=== PATIENT | male | born 1975 | race African-American/Black ===

== ENCOUNTER 2020-04-30 06:58 | Emergency (ER) | payer SELFPAY ==
[~2020-04-30] VITALS: Ht 182.9 cm; Wt 120.0 kg
[2020-04-30] MEDS ORDERED: IV NORMAL SALINE 1000ML BAG 1,000 ML IV ONE (07:15)
[2020-04-30 07:40] VITALS: BP 184/100
--- NOTE | 2020-04-30 07:53 | RAD ---
Exam performed: CT scan of the head without contrast. Date of Service: 04/30/2020. Comparison: None available. Clinical History: Altered Mental status. Technique: Helical acquisitions are obtained from the foramen magnum to the vertex without intravenou s administration of contrast. Findings: The ventricles are midline without evidence of dilatation. Normal pires-white differentiation is maint ained. There is no extra axial fluid collection, intraparenchymal hemorrhage or mass lesion. The vi sualized portions of the orbits, paranasal sinuses and the mastoid air cells appear clear. The kang rium is intact. Impression: 1. No acute intracranial process detected. PQRS Compliance Statement: One or more of the following individualized dose reduction techniques were utilized for this examinat ion: 1. Automated exposure control 2. Adjustment of the mA and/or kV according to patient size 3. Use of iterative reconstruction technique Electronically signed by: Zora Lara MD (04/30/2020 7:51 AM) [id number]
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
== END 2020-04-30 08:30 | disposition home or self-care (01) ==
LOC: ER 06:58
DX: R41.82 Altered mental status, unspecified (principal); R53.1 Weakness; F17.200 Nicotine dependence, unspecified, uncomplicated; Z87.442 Personal history of urinary calculi; Z90.89 Acquired absence of other organs; Z98.890 Other specified postprocedural states
CPT/HCPCS: 70450; 99284

== ENCOUNTER 2021-03-14 20:56 | Emergency (ER) | payer SELFPAY ==
[~2021-03-14] VITALS: Ht 195.6 cm; Wt 103.9 kg
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
[2021-03-14 22:09] VITALS: BP 178/86
[2021-03-14 22:29] LABS: BASO # 0.1 x10^3/uL (0.0-0.2); BASO % 1 % (0-3); EOS # 0.1 x10^3/uL (0.0-0.7); EOS % 2 % (0-3); HEMATOCRIT 40.5 % (39.0-53.0); HEMOGLOBIN 13.5 g/dL (13.0-17.5); LYMPH # 4.4 x10^3/uL (1.0-4.8); LYMPH % 53 % (24-48); MEAN CORPUSCULAR HEMOGLOBIN 30 pg (25-35); MEAN CORPUSCULAR HGB CONC 33 g/dL (31-37); MEAN CORPUSCULAR VOLUME 90 fL (79-100); MONO # 0.5 x10^3/uL (0.0-1.1); MONO % 6 % (0-9); NEUT # 3.2 x10^3/uL (1.8-7.7); NEUT % 39 % (31-73); PLATELET COUNT 389 x10^3/uL (140-400); RED BLOOD COUNT 4.48 x10^6/uL (4.30-5.70); RED CELL DISTRIBUTION WIDTH 13.7 % (11.5-14.5); WHITE BLOOD COUNT 8.3 x10^3/uL (4.0-11.0)
[2021-03-14 22:34] LABS: CALCIUM 8.8 mg/dL (8.5-10.1); CREATININE 0.9 mg/dL (0.7-1.3); GFR 109.4; POTASSIUM 3.9 mmol/L (3.5-5.1)
[2021-03-14] MEDS ORDERED: IOHEXOL 300 MG/ML 100ML VIAL. IV ONE (22:45)
[2021-03-14] MEDS ORDERED: CONTRAST GIVEN. MC PRN (23:00)
== END 2021-03-14 22:28 | disposition left against medical advice (07) ==
LOC: ER 20:56
DX: M54.2 Cervicalgia (principal); M54.50 Low back pain, unspecified; R10.84 Generalized abdominal pain; M79.10 Myalgia, unspecified site; F17.220 Nicotine dependence, chewing tobacco, uncomplicated; F17.200 Nicotine dependence, unspecified, uncomplicated; Z90.49 Acquired absence of other specified parts of digestive tract; G89.11 Acute pain due to trauma; V49.88XA Car occupant (driver) (passenger) injured in other specified transport accidents, initial encounter; Y92.488 Other paved roadways as the place of occurrence of the external cause; Y93.89 Activity, other specified; Y99.8 Other external cause status
CPT/HCPCS: 36415; 80048; 85025; 99283

== ENCOUNTER 2021-04-29 02:32 | Emergency (ER) | payer SELFPAY ==
[~2021-04-29] VITALS: Ht 195.6 cm; Wt 108.2 kg
[2021-04-29] MEDS ORDERED: MAGNESIUM SULFATE 2GM 50 ML IV ONE (03:30)
[2021-04-29] MEDS ORDERED: diphenhydrAMINE 50 MG/ML VIAL IVP ONE (03:30)
[2021-04-29] MEDS ORDERED: PROCHLORPERAZINE 10 MG/2 ML VIAL. IV ONE (03:30)
[2021-04-29] MEDS ORDERED: IV NORMAL SALINE 1000ML BAG 1,000 ML IV ONE (03:30)
--- NOTE | 2021-04-29 04:14 | RAD ---
PQRS Compliance Statement: One or more of the following individualized dose reduction techniques were utilized for this examinat ion: 1. Automated exposure control 2. Adjustment of the mA and/or kV according to patient size 3. Use of iterative reconstruction technique CT HEAD WITHOUT CONTRAST History: Reason: HEADACHE, HTN / Spl. Instructions: / History: Comparison: CT head without contrast April 30, 2020. Procedure: Axial images are obtained of the head from the skull base through the vertex without IV co ntrast. Findings: The ventricles and sulci are normal for the patient's age. No mass-effect, midline shift, hemorrhage, extra-axial fluid collection, or obvious acute infarction is identified. Basilar cisterns are patent. Bone windows demonstrate no acute calvarial abnormality. The visualized paranasal sinuses are clear. Mastoid air cells are well aerated. IMPRESSION: No acute intracranial abnormality. Electronically signed by: Vamsi Jara MD (04/29/2021 4:12 AM) [facility]
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
[2021-04-29 06:03] LABS: CALCIUM 8.6 mg/dL (8.5-10.1); CREATININE 0.8 mg/dL (0.7-1.3); GFR 124.8; POTASSIUM 3.2 mmol/L (3.5-5.1)
[2021-04-29 06:08] LABS: ALBUMIN 3.6 g/dL (3.4-5.0); ALBUMIN/GLOBULIN RATIO 0.8 (1.0-1.7); TOTAL BILIRUBIN 1.5 mg/dL (0.2-1.0); TOTAL PROTEIN 8.2 g/dL (6.4-8.2)
[2021-04-29 07:23] LABS: BASO # 0.1 x10^3/uL (0.0-0.2); BASO % 1 % (0-3); EOS # 0.2 x10^3/uL (0.0-0.7); EOS % 3 % (0-3); HEMATOCRIT 42.2 % (39.0-53.0); HEMOGLOBIN 14.4 g/dL (13.0-17.5); LYMPH # 3.5 x10^3/uL (1.0-4.8); LYMPH % 54 % (24-48); MEAN CORPUSCULAR HEMOGLOBIN 30 pg (25-35); MEAN CORPUSCULAR HGB CONC 34 g/dL (31-37); MEAN CORPUSCULAR VOLUME 89 fL (79-100); MONO # 0.6 x10^3/uL (0.0-1.1); MONO % 9 % (0-9); NEUT # 2.1 x10^3/uL (1.8-7.7); NEUT % 33 % (31-73); PLATELET COUNT 404 x10^3/uL (140-400); RED BLOOD COUNT 4.73 x10^6/uL (4.30-5.70); RED CELL DISTRIBUTION WIDTH 13.3 % (11.5-14.5); WHITE BLOOD COUNT 6.5 x10^3/uL (4.0-11.0)
[2021-04-29] MEDS ORDERED: HYDR12.58 PO (08:42)
[2021-04-29] MEDS ORDERED: hydroCHLOROthiazide 12.5 MG CAPSULE PO ONE (08:45)
[2021-04-29 09:10] VITALS: BP 137/90
== END 2021-04-29 09:18 | disposition home or self-care (01) ==
LOC: ER 02:32
DX: G43.909 Migraine, unspecified, not intractable, without status migrainosus (principal); I10 Essential (primary) hypertension; F17.200 Nicotine dependence, unspecified, uncomplicated
CPT/HCPCS: 36415; 70450; 80053; 85025; 96365; 96375; 99285; G0480; J0780; J1200; J3475; J7030

== ENCOUNTER 2021-08-06 12:47 | Emergency (ER) | payer SELFPAY ==
[~2021-08-06] VITALS: Ht 195.6 cm; Wt 111.4 kg
[~2021-08-06 12:47] MED LIST: HYDR12.58 PO
[2021-08-06] MEDS ORDERED: KETOROLAC 15 MG/ML VIAL. IVP ONE (13:30)
[2021-08-06] MEDS ORDERED: LIDOCAINE (700MG/PATCH) PATCH. TD ONE (13:30)
[2021-08-06] MEDS ORDERED: ORPHENADRINE CITRATE 60 MG/2 ML VIAL. IV ONE (13:30)
[2021-08-06] MEDS ORDERED: ORPH100T PO (14:21)
[2021-08-06] MEDS ORDERED: NAPR-514 PO (14:21)
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
[2021-08-06 15:11] VITALS: BP 171/97
== END 2021-08-06 15:16 | disposition home or self-care (01) ==
LOC: ER 12:47
DX: M54.50 Low back pain, unspecified (principal); F17.200 Nicotine dependence, unspecified, uncomplicated; F10.20 Alcohol dependence, uncomplicated; Y90.9 Presence of alcohol in blood, level not specified
CPT/HCPCS: 96374; 96375; 99284; J1885; J2360